=== PATIENT | male | born 1990 | race Asian ===

== ENCOUNTER 2024-08-14 21:46 | Emergency (ER) | payer OTHER, SELFPAY ==
[2024-08-14 21:50] VITALS: BP 178/118; PULSE 85; RESP 24; TEMP 35.8; O2SAT 95; BMI 42.8
--- NOTE | 2024-08-14 21:56 | ED_ITS ---
HPI - General Adult General Chief complaint: Asthma Stated complaint: Asthma attack Time Seen by Provider: 08/14/24 21:51 History of Present Illness HPI narrative: This 34-year-old male comes in with asthma symptoms. He states that he has been using his albuterol frequently and was soon run out of this medicine. He is not taking any preventative medicine. He states that he does not normally need to use albuterol when residing in [place] but now appear in this area he is using his albuterol frequently. He does not report any fevers. He arrives here with oximetry at 95% on room air. Related Data Home Medications ?Medication ?Instructions ?Recorded ?Confirmed albuterol 90 mcg/actuation aerosol mcg inhalation 08/14/24 inhaler Previous Rx's ?Medication ?Instructions ?Recorded albuterol sulfate 90 mcg/actuation 2 inh inhalation Q4-6H PRN #3 ea 08/14/24 breath activated powder inhaler fluticasone 250 mcg-salmeterol 50 1 inh inhalation BID #60 ea 08/14/24 mcg/dose blistr powdr for inhalation (Advair Diskus) Allergies Allergy/AdvReac Type Severity Reaction Status Date / Time No Known Drug Allergies Allergy Verified 08/14/24 21:49 Review of Systems Status of ROS: Reports: 10 or more systems reviewed and unremarkable except as noted in History and below Narrative: Constitutional: No fevers, no weight gain or loss. Eyes: No discharge. No vision changes. HENT: No congestion, no sore throat, no ear pain. Cardiovascular: No chest pain, no palpitations. Respiratory: Wheezes and frequent coughing from asthma exacerbation. Gastrointestinal: No abdominal pain, no vomiting, no diarrhea. Genitourinary: No dysuria, no hematuria. Musculoskeletal: Normal range of motion. Skin: No rashes, no pruritis. Neurological: No dizziness, weakness, sensory change, speech change. Endo/Heme/Allergies: No bruising or bleeding. No polydipsia. Pysch: no suicidality, no anxiety, no insomnia. All other systems reviewed and are negative. PFSH PFSH Social History Smoking Status: Former smoker Do you use any of these nicotine containing products: Smokeless Tobacco How often do you have a drink containing alcohol: never AUDIT-C Alcohol total score: 0 Non-prescribed substance use: denies use Exam Narrative: Exam Narrative: Constitutional: Well-developed, well-nourished, no acute distress. HEENT: Normocephalic, atraumatic. Neck: Normal range of motion. Nontender. Supple. Heart: Regular. No murmurs. Normal rate. Intact distal pulses. Lungs: Mild bilateral wheezes. No use of accessory muscles for breathing. Abdomen: Normal bowel sounds. Nontender. No rebound tenderness. Genitalia: Deferred. Back: No midline tenderness. Normal range of motion. Extremities: Normal range of motion. No injury. Skin: Intact. No rash. Warm. No erythema or pallor. Neurologic: No altered sensation. No weakness. Alert and oriented. Psychiatric: No suicidality. No anxiety or depression. No insomnia. Nursing notes and vitals signs are reviewed. Const: Vital Signs, click to edit/add: Vital Signs - 24 hr 08/14/24 21:50 08/14/24 22:25 Temperature 96.5 F L Pulse Rate 94 Pulse Rate [Pulse Oximeter] 85 Respiratory Rate 24 Blood Pressure [Ri ght Upper Arm] 178/118 H Pulse Oximetry 95 97 Oxygen Delivery Me thod Room Air Course Vital Signs Vital signs: Initial Vital Signs Temperature 96.5 F L 08/14/24 21:50 Temperature Source Temporal Artery Scan 08/14/24 21:50 Pulse Rate 85 08/14/24 21:50 Respiratory Rate 24 08/14/24 21:50 Blood Pressure 178/118 H 08/14/24 21:50 Blood Pressure Mean 138 H 08/14/24 21:50 Blood Pressure Position Sitting 08/14/24 21:50 Pulse Oximetry 95 08/14/24 21:50 Oxygen Delivery Method Room Air 08/14/24 21:50 Vital Signs Temperature 96.5 F L 08/14/24 21:50 Pulse Rate 85 08/14/24 21:50 Respiratory Rate 24 08/14/24 21:50 Blood Pressure 178/118 H 08/14/24 21:50 Pulse Oximetry 95 08/14/24 21:50 Oxygen Delivery Method Room Air 08/14/24 21:50 Temperature 96.5 F L 08/14/24 21:50 Pulse Rate 94 08/14/24 22:25 Respiratory Rate 24 08/14/24 21:50 Blood Pressure 178/118 H 08/14/24 21:50 Pulse Oximetry 97 08/14/24 22:25 Oxygen Delivery Method Room Air 08/14/24 21:50 Medications Administered Medications: Discontinued Medications Generic Name Dose Route Start Last Admin Trade Name Casandra PRN Reason Stop Dose Admin Albuterol/Ipratropium 1 neb 08/14/24 21:55 08/14/24 22:01 Iprat-Albut 0.5-2.5 Mg/3 Ml Neb IH 08/14/24 21:56 1 neb ONCE ONE Administration Dexamethasone 10 mg 08/14/24 21:55 08/14/24 22:07 Dexamethasone 10 Mg/Ml Inj PO 08/14/24 21:56 10 mg ONCE ONE Administration Medical Decision Making MDM Narrative Medical decision making narrative: This patient comes in with asthma symptoms and states that he will soon run out of his albuterol inhaler. He is not on any preventative medicines and is strongly recommended to start something in this way. The patient did receive an oral dose of dexamethasone 10 mg here. He also received a DuoNeb. He states that he is feeling much better. I did provide prescriptions for albuterol and Advair. Discharge Plan Discharge Clinical Impression: Asthma exacerbation Patient Disposition: Home, Self-Care Condition: Improved Instructions: Asthma (ED) Additional Instructions: Use albuterol as needed for shortness of breath. Use Advair twice daily as directed for prevention of asthma symptoms. Follow up with MD return if worsening. Prescriptions: New albuterol sulfate 90 mcg/actuation aerosol powdr breath activated 2 inh inhalation Q4-6H PRNQty: 3 0RF fluticasone propion-salmeterol [Advair Diskus] 250-50 mcg/dose blister with device 1 inh inhalation BID Qty: 60 2RF No Action albuterol 90 mcg/actuation aerosol inhalation Stand Alone Forms: [employer] Info Instructions
[2024-08-14] MEDS: IPRAT-ALBUT 0.5-2.5 MG/3 ML NEB 1 NEB IH (22:01)
[2024-08-14] MEDS: dexAMETHasone 10 MG/ML inj PO (22:07)
[2024-08-14 22:25] VITALS: PULSE 94; O2SAT 97
[2024-08-14 22:30] VITALS: PULSE 90; O2SAT 97
[2024-08-14 22:40] VITALS: PULSE 89; O2SAT 97
== END 2024-08-14 22:48 | disposition home or self-care (01) ==
PROVIDERS: Emergency Provider Emergency Medicine Emergency Medical Services
DX: J45.901 Unspecified asthma with (acute) exacerbation (principal)
CPT/HCPCS: 99283; 99284; J1100